=== PATIENT | female | born 1990 | race African-American/Black ===

== ENCOUNTER 2024-12-18 21:52 | Emergency (ER) | payer SELFPAY ==
[~2024-12-18] VITALS: Ht 182.9 cm; Wt 118.0 kg
[2024-12-18 21:58] VITALS: BP 130/78; PULSE 67; RESP 18; TEMP 37.1; O2SAT 100
== END 2024-12-18 22:04 | disposition left against medical advice (07) ==
LOC: ER 21:52
DX: F10.129 Alcohol abuse with intoxication, unspecified (principal); Z53.21 Procedure and treatment not carried out due to patient leaving prior to being seen by health care provider; Y90.9 Presence of alcohol in blood, level not specified
CPT/HCPCS: 99281